=== PATIENT | female | born 1955 | race Caucasian/White ===

== ENCOUNTER 2017-07-03 15:45 | Inpatient (IN) | payer MEDICARE, MEDICAID ==
[~2017-07-03] VITALS: Ht 162.6 cm; Wt 90.7 kg
[2017-07-03] MEDS ORDERED: OLANZAPINE 10 MG VIAL IM ONE ×3 (16:15→19:45)
[2017-07-03] MEDS ORDERED: RISP3TAB5 PO (16:29)
[2017-07-03] MEDS ORDERED: CLOZ25TA4 PO (16:29)
[2017-07-03] MEDS ORDERED: DOCU-106 PO (16:29)
[2017-07-03] MEDS ORDERED: DIVA500T4 PO (16:29)
[2017-07-03] MEDS ORDERED: METO50TA16 PO (16:29)
[2017-07-03] MEDS ORDERED: ALBU8.5H8 IH (16:29)
[2017-07-03] MEDS ORDERED: ASPI-1152 PO (16:29)
--- NOTE | 2017-07-03 16:50 | NUR ---
MRSA NARES ORDERED AND SENT, ZY[facility] IM ADMINISTERESD. SVBAR REPORT TO NATI RN-MHU GIVEN. PT'S ADMIT ORDER WRITTEN.
--- NOTE | 2017-07-03 17:04 | NUR ---
[facility]
[2017-07-03] MEDS ORDERED: MAGNESIUM HYDROXIDE 30 ML LIQUID UDC PO PRN (17:45)
[2017-07-03] MEDS ORDERED: ACETAMINOPHEN 325 MG TABLET PO PRN (17:45)
[2017-07-03] MEDS ORDERED: ZOLPIDEM 5 MG TABLET PO PRN (17:45)
[2017-07-03] MEDS ORDERED: LORAZEPAM 1 MG TABLET PO PRN (17:45)
[2017-07-03] MEDS ORDERED: MAG HYDROX/AL HYDROX/SIMETH 30 ML LIQUID UDC PO PRN (17:45)
[2017-07-03] MEDS ORDERED: LORAZEPAM 2 MG/1 ML VIAL IM ONE (19:45)
--- NOTE | 2017-07-03 19:50 | NUR ---
At approx 1930, patient was observed yelling, screaming, demanding, belligerent, and cursing. she stated, "I want a fucking sandwich right now!!!, this is a horrible place!!!" she was also observed spilling juice in the floor intensionally. Patient was given multiple redirection; however, ineffective. Pt continue yelling, screaming, bothering other patients. She continue walking toward staff in a threatening posturing. Multiple redirection given, including offering time out, diversion, environmental modification; however, ineffective. PO PRN medication for anxiety/agitation was offered, but patient refused. Dr Ayala was called at approx 1936. At approx 1940, Dr Ayala called back and was notify of patient's behavior. New orders were obtained to administer Zyprexa 5mg IM and Ativan 1mg IM stat orders, one time only. Pharmacy was called to verify medication and once verify, IM medications were given at approx 1950 with patient's consent. Patient refused to have anyone to be notify. will continue to monitor.
[2017-07-03] MEDS ORDERED: ALBUTEROL SULFATE 8 GM HFA.AER.AD IH PRN (23:00)
[2017-07-03] MEDS ORDERED: CLONIDINE HCL 0.1 MG TABLET PO PRN (23:15)
--- NOTE | 2017-07-04 07:01 | NUR ---
PATIENT SLEPT FOR APPROX 6.30HRS THROUGH THE NIGHT. NO AGGRESSIVE/COMBATIVE BX NOTED. WILL CONTINUE TO MONITOR.
[2017-07-04] MEDS ORDERED: ALBUTEROL SULFATE 2.5 MG/3 ML NEBU NEB PRN (07:15)
[2017-07-04] MEDS ORDERED: METOPROLOL TARTRATE 50 MG TABLET PO SCH (09:00)
[2017-07-04] MEDS ORDERED: DIVALPROEX ER 500 MG TAB.SR.24H PO SCH (09:00)
[2017-07-04] MEDS: DOCUSATE SODIUM 100 MG CAPSULE PO SCH ×2 (09:00→09:12)
[2017-07-04] MEDS: ASPIRIN EC 81 MG TABLET.DR PO SCH ×2 (09:12→09:21)
[2017-07-04] MEDS ORDERED: HALOPERIDOL LACTATE 5 MG/1 ML VIAL IM PRN (09:15)
[2017-07-04] MEDS: DIVALPROEX ER 500 MG TAB.SR.24H PO SCH ×2 (09:15→17:00)
[2017-07-04] MEDS ORDERED: diphenhydrAMINE 50 MG/1 ML VIAL IM PRN (09:15)
[2017-07-04] MEDS: risperiDONE-M 0.5 MG TAB.RAPDIS PO SCH ×2 (09:15→17:00)
[2017-07-04] MEDS: HALOPERIDOL 2 MG TABLET PO SCH ×3 (13:00→21:20)
[2017-07-04] MEDS ORDERED: CLONIDINE HCL 0.1 MG TABLET PO PRN (17:00)
[2017-07-04] MEDS: BENZTROPINE MESYLATE 0.5 MG TABLET PO SCH (17:00)
[2017-07-04] MEDS: DOCOSANOL 2 GM CREAM TP SCH ×3 (17:00→21:31)
[2017-07-04] MEDS: CEFUROXIME AXETIL 250 MG TABLET PO SCH (17:08)
--- NOTE | 2017-07-04 20:30 | NUR ---
RECEIVED PATIENT IN HER ROOM, SHE IS NOTED A/O X 1, SHE IS ABLE TO WALK WITH STEADY GAIT AND ABLE TO MAKE HER NEEDS KNOW. SHE CONTINUE HYPERVERBAL, NEEDY, EASILY IRRITABLE, DEMANDING AND UNCOOPERATIVE. SHE REFUSED V/S, ASSESSMENT. POOR HISTORIAN, POOR INSIGHT AND JUDGMENT. SAFETY WAS EMPHASIS. WILL CONTINUE TO MONITOR CLOSELY.
[2017-07-04] MEDS: METOPROLOL TARTRATE 50 MG TABLET PO SCH (21:00)
--- NOTE | 2017-07-04 21:45 | NUR ---
PATIENT WAS ABLE TO PARTIALLY COMPLY WITH MEDICATION REGIMENT: HALDOL 2MG PO QHS AND ABREVA TOPICAL FOR LESION ON RIGHT SIDE OF LIPS WERE GIVEN. HOWEVER, PATIENT REFUSED V/S AND HTN MEDICATION. SHE ALSO REFUSED ATB PO TREATMENT. MULTIPLE REDIRECTION GIVEN. YET REFUSED. PT CONTINUE DELUSIONAL, SUSPICIOUS, SHE STATED, "YOU ALL TRYING TO POISON ME WITH YOUR PILLS." "I DO NOT NEED ANY MEDICATION". PATIENT CONTINUE EASILY IRRITABLE, YELLING AT TIME. SHE DENIES SI/HI. NO AGGRESSIVE/COMBATIVE BX NOTED AT THIS TIME. PT WAS ENCOURAGED TO VERBALIZED FEELINGS. WILL CONTINUE TO MONITOR/
[2017-07-05] MEDS: DOCOSANOL 2 GM CREAM TP SCH ×5 (06:30→20:36)
--- NOTE | 2017-07-05 07:03 | NUR ---
PATIENT SLEPT FOR APPROX 5.30 HRS THROUGH THE NIGHT. SHE WAS COMPLIANT WITH [facility] TOPICAL.
[2017-07-05 07:30] VITALS: BP 152/79
--- NOTE | 2017-07-05 08:00 | NUR ---
RECEIVED PATIENT IN BED, AFEBRILE, NOTED A/O X 2, ABLE TO VERBALIZE KNOWN NEEDS, NEEDY, EASILY IRRITABLE, DEMANDING AND UNCOOPERATIVE. REFUSE ASSESSMENT. POOR HISTORIAN, POOR INSIGHT AND JUDGMENT. SAFETY WAS EMPHASIS. WILL CONTINUE TO MONITOR CLOSELY.
[2017-07-05] MEDS: CEFUROXIME AXETIL 250 MG TABLET PO SCH ×2 (09:00→21:08)
[2017-07-05] MEDS: risperiDONE-M 0.5 MG TAB.RAPDIS PO SCH ×3 (09:00→17:38)
[2017-07-05] MEDS: DIVALPROEX ER 500 MG TAB.SR.24H PO SCH ×3 (09:00→17:38)
[2017-07-05] MEDS: BENZTROPINE MESYLATE 0.5 MG TABLET PO SCH ×3 (09:00→17:38)
[2017-07-05] MEDS: HALOPERIDOL 2 MG TABLET PO SCH ×5 (09:00→20:36)
[2017-07-05] MEDS: DOCUSATE SODIUM 100 MG CAPSULE PO SCH ×2 (09:00→09:32)
[2017-07-05] MEDS: METOPROLOL TARTRATE 50 MG TABLET PO SCH ×3 (09:00→21:00)
--- NOTE | 2017-07-05 09:00 | NUR ---
OFFERED MEDICATION, PATIENT AGREES TO TAKE IT, AFTER PREPARING THE MEDICATION SHE REFUSE TO TAKE IT AND SAID "JUST GIVE ME THE HALDOL IM, ITS TOO MUCH MEDICINE FOR ME" REGIMENT: HALDOL 2.5MG/IM/PRN GIVEN AND ABREVA TOPICAL FOR LESION ON RIGHT SIDE OF LIPS WERE GIVEN. HOWEVER, PATIENT REFUSED HTN MEDICATION. MULTIPLE REDIRECTION GIVEN. YET REFUSED. PT CONTINUE DELUSIONAL, SUSPICIOUS, SHE STATED, "I DO NOT NEED ANY MEDICATION". PATIENT CONTINUE EASILY IRRITABLE, YELLING AT TIME. SHE DENIES SI/HI. NO AGGRESSIVE/COMBATIVE BX NOTED AT THIS TIME. PT WAS ENCOURAGED TO VERBALIZED FEELINGS. WILL CONTINUE TO MONITOR
--- NOTE | 2017-07-05 13:03 | NUR ---
PATIENT TOOK SCHEDULED HALDOL 2MG/PO
--- NOTE | 2017-07-05 15:45 | NUR ---
Initial Discharge Plan: Pt address on face sheet is [address] [place] [address] however on 5150 report p[place] [address] [address]; (no other information reported). Pt reports living in a B&C currently ans when discharged she would like to live in a house. JON will follow up with her Conservator, Shweta Morocho for discharge planning purposes. SW will ensure pt is safely and appropriately discharged.
[2017-07-05 16:14] VITALS: BP 141/85
[2017-07-05 19:42] VITALS: BP 118/60
--- NOTE | 2017-07-05 21:00 | NUR ---
RECEIVED PATIENT IN THE DAY ROOM, SHE WAS NOTED A/O X 2, SHE IS ABLE TO AMBULATE WITH STEADY GAIT AND ABLE TO MAKE HER NEEDS KNOWN. SHE IS NOTED LESS IRRITABLE, LESS HYPERVERBAL LESS ARGUMENTATIVE. POOR INSIGHT AND JUDGMENT. BLUNTED AFFECT, LABILE MOOD. SHE WAS COMPLIANT WITH [facility] MEDICATION EXCEPT FOR METOPROLOL 50MG PO. SHE STATED, "I DON'T NEED IT BECAUSE MY BLOOD PRESSURE WAS 118, I AM GOOD." PT WAS ENCOURAGED TO VERBALIZED FEELINGS. SAFETY EMPHASIS. WILL CONTINUE TO MONITOR.
[2017-07-06] MEDS: DOCOSANOL 2 GM CREAM TP SCH ×5 (06:58→20:39)
--- NOTE | 2017-07-06 07:27 | NUR ---
pt refused blood drawn this am
[2017-07-06 08:00] VITALS: BP 143/79
[2017-07-06] MEDS: risperiDONE-M 0.5 MG TAB.RAPDIS PO SCH ×2 (08:06→16:46)
[2017-07-06] MEDS: ASPIRIN EC 81 MG TABLET.DR PO SCH (08:06)
[2017-07-06] MEDS: BENZTROPINE MESYLATE 0.5 MG TABLET PO SCH ×2 (08:06→16:46)
[2017-07-06] MEDS: DOCUSATE SODIUM 100 MG CAPSULE PO SCH (08:06)
[2017-07-06] MEDS: METOPROLOL TARTRATE 50 MG TABLET PO SCH ×2 (08:07→20:16)
[2017-07-06] MEDS: HALOPERIDOL 2 MG TABLET PO SCH (08:07)
[2017-07-06] MEDS: DIVALPROEX ER 500 MG TAB.SR.24H PO SCH ×2 (08:07→16:46)
[2017-07-06] MEDS: CEFUROXIME AXETIL 250 MG TABLET PO SCH ×2 (08:08→20:16)
[2017-07-06] MEDS: HALOPERIDOL 5 MG TABLET PO SCH ×3 (09:00→16:46)
--- NOTE | 2017-07-06 09:45 | NUR ---
Pt seen and examined by Dr Ayala with new order to increase Haldol 5mg TID. Non-admin 9am dose due to already administered 9am dose from previous BID order.
--- NOTE | 2017-07-06 11:02 | NUR ---
Firearms Report: Criminal Investigator completed and submitted [employer] Firearms Report on 07/06/17.
[2017-07-06 15:56] VITALS: BP 123/73
[2017-07-06] MEDS: GUAIFENESIN LA 600 MG TABLET.SA PO SCH (20:15)
[2017-07-07] MEDS: DOCOSANOL 2 GM CREAM TP SCH ×5 (06:01→20:31)
--- NOTE | 2017-07-07 06:53 | NUR ---
GPS: REMAIN CALM NAD COOPERATIVE WITH MEDICATIONS AND CARE. SLEPT 7 HRS THROUGH THE NIGHT. NO AGITATION NOTED AT THIS TIME. CONTINUE PLAN OF CARE.
[2017-07-07 07:30] VITALS: BP 115/58
[2017-07-07] MEDS: risperiDONE-M 0.5 MG TAB.RAPDIS PO SCH ×2 (08:13→16:09)
[2017-07-07] MEDS: DOCUSATE SODIUM 100 MG CAPSULE PO SCH (08:13)
[2017-07-07] MEDS: ASPIRIN EC 81 MG TABLET.DR PO SCH (08:13)
[2017-07-07] MEDS: DIVALPROEX ER 500 MG TAB.SR.24H PO SCH ×2 (08:13→16:08)
[2017-07-07] MEDS: BENZTROPINE MESYLATE 0.5 MG TABLET PO SCH ×2 (08:13→16:08)
[2017-07-07] MEDS: METOPROLOL TARTRATE 50 MG TABLET PO SCH ×2 (08:13→20:31)
[2017-07-07] MEDS: CEFUROXIME AXETIL 250 MG TABLET PO SCH ×2 (08:13→20:32)
[2017-07-07] MEDS: HALOPERIDOL 5 MG TABLET PO SCH ×3 (08:13→16:08)
[2017-07-07] MEDS: GUAIFENESIN LA 600 MG TABLET.SA PO SCH ×2 (08:14→20:30)
--- NOTE | 2017-07-07 08:15 | NUR ---
PT REFUSED MORNING LAB WORK CHARGE NURSE AND MADE AWARE
[2017-07-07 15:42] VITALS: BP 134/67
[2017-07-07 20:00] VITALS: BP 135/58
[2017-07-08] MEDS: DOCOSANOL 2 GM CREAM TP SCH ×5 (06:00→20:55)
--- NOTE | 2017-07-08 06:35 | NUR ---
GPS: REMAIN CALM AND COOPERATIVE WITH CARE. SLEPT 8:30 HRS THROUGH THE NIGHT.NO AGITATION NOTED.
--- NOTE | 2017-07-08 06:37 | NUR ---
GPS: REFUSED ABREVA CREAM FOR LIPS THIS MORNING.
[2017-07-08 08:29] VITALS: BP 145/75
[2017-07-08] MEDS: CEFUROXIME AXETIL 250 MG TABLET PO SCH ×2 (09:10→20:54)
[2017-07-08] MEDS: DIVALPROEX ER 500 MG TAB.SR.24H PO SCH ×2 (09:11→18:52)
[2017-07-08] MEDS: ASPIRIN EC 81 MG TABLET.DR PO SCH (09:11)
[2017-07-08] MEDS: DOCUSATE SODIUM 100 MG CAPSULE PO SCH (09:12)
[2017-07-08] MEDS: GUAIFENESIN LA 600 MG TABLET.SA PO SCH ×2 (09:12→20:54)
[2017-07-08] MEDS: risperiDONE-M 0.5 MG TAB.RAPDIS PO SCH ×2 (09:13→18:53)
[2017-07-08] MEDS: HALOPERIDOL 5 MG TABLET PO SCH ×3 (09:13→18:52)
[2017-07-08] MEDS: BENZTROPINE MESYLATE 0.5 MG TABLET PO SCH ×2 (09:13→18:52)
[2017-07-08] MEDS: METOPROLOL TARTRATE 50 MG TABLET PO SCH ×2 (09:14→20:54)
--- NOTE | 2017-07-08 11:55 | NUR ---
RECEIVED Pt IN BED SLEEPING BUT EASILY AROUSED, A/O X 3, COOPERATIVE, COMPLIANT WITH MEDS AND CARE STAFF. NOTED DEPRESSION AND AGITATION WITH CERTAIN THINGS, LABILE, CLEAR BUT TANGENTIAL SPEECH WHEN Pt BECOMES AGITATED, DENIES SI.
[2017-07-08] MEDS: ECONAZOLE TP SCH (12:35)
[2017-07-08 12:58] LABS: BILIRUBIN,TOTAL 0.6 mg/dL (0.2-1.0); CREATININE 0.6 mg/dL (0.6-1.3); PHOSPHOROUS 3.2 mg/dL (2.5-4.9); POTASSIUM 4.4 mmol/L (3.5-5.1); TOTAL PROTEIN, SERUM 6.5 g/dL (6.4-8.2)
[2017-07-08 13:00] LABS: BASOPHILS % (AUTO) 0.1 % (0.0-2.0); HEMATOCRIT 43.1 % (31.2-41.9); HEMOGLOBIN 14.5 g/dL (10.9-14.3); LYMPHOCYTES # (AUTO) 2.1 K/uL (20.0-40.0); LYMPHOCYTES % (AUTO) 37.3 % (20.5-51.5); MEAN CORPUSCULAR HEMOGLOBIN 29.3 uug (24.7-32.8); MEAN CORPUSCULAR HGB CONC 34 g/dL (32.3-35.6); MEAN CORPUSCULAR VOLUME 86.7 fL (75.5-95.3); MONOCYTES # (AUTO) 0.4 K/uL (2.0-10.0); MONOCYTES % (AUTO) 6.8 % (0.0-11.0); NEUTROPHILS # (AUTO) 3.2 K/uL (1.8-8.9); NEUTROPHILS % (AUTO) 55.8 % (38.5-71.5); PLATELET COUNT (AUTO) 233 K/uL (179-408); RED BLOOD CELL COUNT(AUTO) 4.96 MIL/uL (3.63-4.92); WHITE BLOOD COUNT (AUTO) 5.7 K/uL (3.8-11.8)
[2017-07-08 13:20] LABS: THYROID STIMULATING HORMONE 1.848 mIU/mL (0.358-3.740)
[2017-07-08 16:41] VITALS: BP 145/79
[2017-07-08 20:00] VITALS: BP 139/60
--- NOTE | 2017-07-09 00:45 | NUR ---
Pt AWOKE AND WENT TO THE BATHROOM IN HER ROOM, AND BECAME EXTREMELY ANGRY AND AGITATED BECAUSE THE BATHROOM SMELLED LIKE SMOKE D/T HER ROOMMATE BEING CAUGHT SMOKING A CIGARETTE IN THE BATHROOM EARLIER. Pt YELLED AND SCREAMED RACIAL SLURS AND THREATS TO HER ROOMMATE, AND BEGAN POSTURING. FOR SAFETY, THIS Pt WAS REDIRECTED AND TEMPORARILY MOVED TO ROOM 142 WITH THE DOOR OPEN.
[2017-07-09] MEDS: DOCOSANOL 2 GM CREAM TP SCH ×5 (06:00→20:22)
[2017-07-09 07:30] VITALS: BP 149/99
--- NOTE | 2017-07-09 09:00 | NUR ---
Patient pacing in and out of her room and in the dayroom watching tv, guarded, no interaction with peers and staff, less irritable today, keeps to self, spent time watching tv when in the dayroom, ate 100% breakfast. Denies SI/HI/AH, no aggressive behavior noted. Medication compliant and cooperative,no c/o pain noted. Will continue to monitor for safety, needs and behavioral changes.
[2017-07-09] MEDS: DOCUSATE SODIUM 100 MG CAPSULE PO SCH (09:26)
[2017-07-09] MEDS: BENZTROPINE MESYLATE 0.5 MG TABLET PO SCH ×2 (09:26→16:41)
[2017-07-09] MEDS: HALOPERIDOL 5 MG TABLET PO SCH ×3 (09:26→16:41)
[2017-07-09] MEDS: ASPIRIN EC 81 MG TABLET.DR PO SCH (09:26)
[2017-07-09] MEDS: GUAIFENESIN LA 600 MG TABLET.SA PO SCH ×2 (09:27→20:23)
[2017-07-09] MEDS: METOPROLOL TARTRATE 50 MG TABLET PO SCH ×2 (09:27→20:24)
[2017-07-09] MEDS: risperiDONE-M 0.5 MG TAB.RAPDIS PO SCH ×2 (09:28→16:42)
[2017-07-09] MEDS: CEFUROXIME AXETIL 250 MG TABLET PO SCH ×2 (09:39→20:23)
[2017-07-09] MEDS: DIVALPROEX ER 500 MG TAB.SR.24H PO SCH ×3 (09:41→16:42)
[2017-07-09] MEDS: ECONAZOLE TP SCH (09:41)
[2017-07-09 15:50] VITALS: BP 136/92
--- NOTE | 2017-07-09 18:34 | NUR ---
Visible in dayroom in pm watching tv with peers, pleasant on approach, ate 100% snacks and dinner, medication compliant and cooperative, no aggressive behavior noted during the shift. Will continue to monitor.
[2017-07-09 20:46] VITALS: BP 125/52
[2017-07-10] MEDS: DOCOSANOL 2 GM CREAM TP SCH ×5 (06:00→21:49)
[2017-07-10 07:30] VITALS: BP 159/83
[2017-07-10] MEDS: risperiDONE-M 0.5 MG TAB.RAPDIS PO SCH ×2 (08:55→16:58)
[2017-07-10] MEDS: DIVALPROEX ER 500 MG TAB.SR.24H PO SCH ×3 (08:57→16:58)
[2017-07-10] MEDS: HALOPERIDOL 5 MG TABLET PO SCH ×3 (08:57→16:58)
[2017-07-10] MEDS: ASPIRIN EC 81 MG TABLET.DR PO SCH (08:57)
[2017-07-10] MEDS: METOPROLOL TARTRATE 50 MG TABLET PO SCH ×2 (08:57→21:49)
[2017-07-10] MEDS: DOCUSATE SODIUM 100 MG CAPSULE PO SCH (08:57)
[2017-07-10] MEDS: BENZTROPINE MESYLATE 0.5 MG TABLET PO SCH ×2 (08:57→16:58)
[2017-07-10] MEDS: CEFUROXIME AXETIL 250 MG TABLET PO SCH ×2 (08:59→21:48)
[2017-07-10] MEDS ORDERED: HALOPERIDOL DECANOATE 50 MG/1 ML AMPUL IM ONE (09:00)
[2017-07-10] MEDS: GUAIFENESIN LA 600 MG TABLET.SA PO SCH ×2 (10:51→21:48)
[2017-07-10] MEDS: ECONAZOLE TP SCH (11:03)
[2017-07-10 15:25] VITALS: BP 129/75
[2017-07-10 19:41] VITALS: BP 123/62
[2017-07-11] MEDS: DOCOSANOL 2 GM CREAM TP SCH ×5 (05:12→20:29)
--- NOTE | 2017-07-11 06:26 | NUR ---
Patient slept 9 hours. No behavioral issues noted. Cooperative. Med compliant. Vital signs stable. Bed was kept in low and locked position. Safety and comfort measures maintained t/o shift.
[2017-07-11 07:30] VITALS: BP 143/80
[2017-07-11] MEDS: METOPROLOL TARTRATE 50 MG TABLET PO SCH ×2 (08:25→20:29)
[2017-07-11] MEDS: DOCUSATE SODIUM 100 MG CAPSULE PO SCH (08:25)
[2017-07-11] MEDS: risperiDONE-M 0.5 MG TAB.RAPDIS PO SCH ×2 (08:25→16:48)
[2017-07-11] MEDS: HALOPERIDOL 5 MG TABLET PO SCH ×3 (08:26→16:48)
[2017-07-11] MEDS: ASPIRIN EC 81 MG TABLET.DR PO SCH (08:26)
[2017-07-11] MEDS: CEFUROXIME AXETIL 250 MG TABLET PO SCH (08:26)
[2017-07-11] MEDS: GUAIFENESIN LA 600 MG TABLET.SA PO SCH ×2 (08:26→20:28)
[2017-07-11] MEDS: DIVALPROEX ER 500 MG TAB.SR.24H PO SCH ×3 (08:26→16:48)
[2017-07-11] MEDS: ECONAZOLE TP SCH (08:27)
[2017-07-11] MEDS: BENZTROPINE MESYLATE 0.5 MG TABLET PO SCH ×2 (08:29→16:49)
[2017-07-11 14:40] VITALS: BP 148/82
[2017-07-11 21:40] VITALS: BP 120/66
[2017-07-12] MEDS: DOCOSANOL 2 GM CREAM TP SCH ×5 (06:00→20:13)
[2017-07-12 07:30] VITALS: BP 170/98
[2017-07-12 08:02] VITALS: BP 170/98
[2017-07-12] MEDS: risperiDONE-M 0.5 MG TAB.RAPDIS PO SCH ×2 (08:39→16:33)
[2017-07-12] MEDS: METOPROLOL TARTRATE 50 MG TABLET PO SCH ×2 (08:39→20:11)
[2017-07-12] MEDS: DOCUSATE SODIUM 100 MG CAPSULE PO SCH (08:40)
[2017-07-12] MEDS: DIVALPROEX ER 500 MG TAB.SR.24H PO SCH ×3 (08:40→16:34)
[2017-07-12] MEDS: HALOPERIDOL 5 MG TABLET PO SCH ×3 (08:40→16:33)
[2017-07-12] MEDS: BENZTROPINE MESYLATE 0.5 MG TABLET PO SCH ×2 (08:40→16:33)
[2017-07-12] MEDS: GUAIFENESIN LA 600 MG TABLET.SA PO SCH ×2 (08:40→20:11)
[2017-07-12] MEDS: ASPIRIN EC 81 MG TABLET.DR PO SCH (08:40)
[2017-07-12] MEDS: ECONAZOLE TP SCH (08:41)
[2017-07-12 17:06] VITALS: BP 128/64
[2017-07-12 20:09] VITALS: BP 132/60
[2017-07-13] MEDS: DOCOSANOL 2 GM CREAM TP SCH ×5 (06:25→22:42)
--- NOTE | 2017-07-13 06:51 | NUR ---
GPS: REMAIN CALM AND COOPERATIVE. SLEPT 9:30 HRS THROUGH THE NIGHT. AMBULATE WITH STEADY GAIT.NO BEHAVIOR PROBLEM NOTED. CONTINUE MONITORING FOR SAFETY.
[2017-07-13 07:30] VITALS: BP 142/69
--- NOTE | 2017-07-13 07:45 | NUR ---
GPS: Rec'd pt in bed, awake. No acute distress noted. No behavioral manifestation noted at this time. Per report, pt continues to be cooperative with plan of care. Denies pain. Will continue to monitor for change.
[2017-07-13] MEDS: BENZTROPINE MESYLATE 0.5 MG TABLET PO SCH ×2 (08:26→16:38)
[2017-07-13] MEDS: DIVALPROEX ER 500 MG TAB.SR.24H PO SCH ×3 (08:26→16:38)
[2017-07-13] MEDS: DOCUSATE SODIUM 100 MG CAPSULE PO SCH (08:26)
[2017-07-13] MEDS: ASPIRIN EC 81 MG TABLET.DR PO SCH (08:27)
[2017-07-13] MEDS: HALOPERIDOL 5 MG TABLET PO SCH ×3 (08:27→16:38)
[2017-07-13] MEDS: GUAIFENESIN LA 600 MG TABLET.SA PO SCH ×2 (08:28→22:41)
[2017-07-13] MEDS: risperiDONE-M 0.5 MG TAB.RAPDIS PO SCH ×2 (08:28→16:38)
[2017-07-13] MEDS: METOPROLOL TARTRATE 50 MG TABLET PO SCH ×2 (08:57→22:42)
[2017-07-13] MEDS: ECONAZOLE TP SCH (10:15)
[2017-07-13 16:24] VITALS: BP 127/60
--- NOTE | 2017-07-13 18:30 | NUR ---
GPS: Pt remained calm during shift. Took all due meds and was cooperative with plan of care. Tolerated all meals. Ambulating ad konstantin in unit. BRP. Denies pain. Attended activities of choice. No behavioral manifestations noted. Will continue to monitor.
[2017-07-13 20:00] VITALS: BP 133/63
[2017-07-14 07:30] VITALS: BP 162/71
[2017-07-14] MEDS: GUAIFENESIN LA 600 MG TABLET.SA PO SCH ×2 (08:20→20:58)
[2017-07-14] MEDS: BENZTROPINE MESYLATE 0.5 MG TABLET PO SCH ×2 (08:20→18:16)
[2017-07-14] MEDS: risperiDONE-M 0.5 MG TAB.RAPDIS PO SCH ×2 (08:20→18:16)
[2017-07-14] MEDS: DIVALPROEX ER 500 MG TAB.SR.24H PO SCH ×3 (08:20→18:16)
[2017-07-14] MEDS: ASPIRIN EC 81 MG TABLET.DR PO SCH (08:20)
[2017-07-14] MEDS: DOCUSATE SODIUM 100 MG CAPSULE PO SCH (08:20)
[2017-07-14] MEDS: HALOPERIDOL 5 MG TABLET PO SCH ×3 (08:20→18:16)
[2017-07-14] MEDS: METOPROLOL TARTRATE 50 MG TABLET PO SCH ×2 (08:23→20:58)
[2017-07-14] MEDS: ECONAZOLE TP SCH (08:23)
[2017-07-14] MEDS: DOCOSANOL 2 GM CREAM TP SCH (10:50)
[2017-07-14 15:51] VITALS: BP 118/71
[2017-07-14 20:29] VITALS: BP 116/76
[2017-07-15 07:30] VITALS: BP 136/83
[2017-07-15] MEDS: risperiDONE-M 0.5 MG TAB.RAPDIS PO SCH ×2 (08:30→17:19)
[2017-07-15] MEDS: HALOPERIDOL 5 MG TABLET PO SCH ×3 (08:31→17:19)
[2017-07-15] MEDS: GUAIFENESIN LA 600 MG TABLET.SA PO SCH ×2 (08:31→21:14)
[2017-07-15] MEDS: ASPIRIN EC 81 MG TABLET.DR PO SCH (08:31)
[2017-07-15] MEDS: METOPROLOL TARTRATE 50 MG TABLET PO SCH ×2 (08:31→21:14)
[2017-07-15] MEDS: BENZTROPINE MESYLATE 0.5 MG TABLET PO SCH ×2 (08:31→17:19)
[2017-07-15] MEDS: DOCUSATE SODIUM 100 MG CAPSULE PO SCH (08:31)
[2017-07-15] MEDS: DIVALPROEX ER 500 MG TAB.SR.24H PO SCH ×3 (08:31→17:19)
[2017-07-15] MEDS: ECONAZOLE TP SCH (08:33)
[2017-07-15 15:55] VITALS: BP 129/83
[2017-07-15 20:00] VITALS: BP 133/61
[2017-07-16 07:30] VITALS: BP 136/94
[2017-07-16] MEDS: DIVALPROEX ER 500 MG TAB.SR.24H PO SCH (08:16)
[2017-07-16] MEDS: risperiDONE-M 0.5 MG TAB.RAPDIS PO SCH (08:16)
[2017-07-16 08:17] VITALS: BP 115/79
[2017-07-16] MEDS: METOPROLOL TARTRATE 50 MG TABLET PO SCH (08:17)
[2017-07-16] MEDS: BENZTROPINE MESYLATE 0.5 MG TABLET PO SCH (08:17)
[2017-07-16] MEDS: ASPIRIN EC 81 MG TABLET.DR PO SCH (08:17)
[2017-07-16] MEDS: GUAIFENESIN LA 600 MG TABLET.SA PO SCH (08:17)
[2017-07-16] MEDS: HALOPERIDOL 5 MG TABLET PO SCH (08:17)
[2017-07-16] MEDS: DOCUSATE SODIUM 100 MG CAPSULE PO SCH (08:18)
[2017-07-16] MEDS: ECONAZOLE TP SCH (08:18)
--- NOTE | 2017-07-16 08:46 | NUR ---
Discharge Note: Patient will be discharged to [facility] [[address] [place] [address]; [phone]] via ambulance. Spoke with CJ at the facility who states they are ready to accept the patient today. Spoke with patient's sister/LPS conservator Shweta ([phone]) who is aware and agreeable with discharge plans. Patient is aware and agreeable with discharge plans. Patient will follow-up at the facility with Dr. Kidd (Credit Clerk) and Dr. Morgan (Psychiatrist). For smoking cessation, patient was referred to [employer] 800-LUNGUSA and [employer] [phone].
[2017-07-16] MEDS ORDERED: LIDOCAINE 5% PATCH TD SCH (09:00)
--- NOTE | 2017-07-16 12:21 | NUR ---
PT TO DISCHARGE TO [facility] VIA AMBULANCE. PT D/C WITH ALL BELONGINGS, VALUABLES, AND EXIT CARE PACKET. PT DENIES SI, HI, DELUSIONS, AND AUDITORY HALLUCINATIONS AT THIS TIME. PT IS STABLE FOR D/C, REFUSING VACCINES, CALM, COOPERATIVE, MEDICATION COMPLIANT. PICTURES TAKEN UPON D/C AND PLACE INTO CHART.REPORT CALLED IN TO NURSE PORTILLO.
== END 2017-07-16 12:21 | DRG 885 ==
LOC: ER 15:49 → GPS 16:25
PROVIDERS: ADMIT Psychiatry & Neurology Psychiatry; ATTEND Internal Medicine
PROC: 0HBRXZZ Excision of Toe Nail, External Approach (ICD-10-PCS; principal; 2017-07-04)
DX: F20.0 Paranoid schizophrenia (principal); G40.909 Epilepsy, unspecified, not intractable, without status epilepticus; B00.1 Herpesviral vesicular dermatitis; B35.1 Tinea unguium; B35.3 Tinea pedis; F17.200 Nicotine dependence, unspecified, uncomplicated; E66.9 Obesity, unspecified; L60.8 Other nail disorders; Z91.19 Patient's noncompliance with other medical treatment and regimen; R26.2 Difficulty in walking, not elsewhere classified; L85.1 Acquired keratosis [keratoderma] palmaris et plantaris; Z79.82 Long term (current) use of aspirin; Z79.899 Other long term (current) drug therapy; Z68.33 Body mass index [BMI] 33.0-33.9, adult; Z71.3 Dietary counseling and surveillance; J20.9 Acute bronchitis, unspecified; J45.909 Unspecified asthma, uncomplicated; I10 Essential (primary) hypertension; G89.29 Other chronic pain; M25.569 Pain in unspecified knee
CPT/HCPCS: 36415; 71045; 80164; 83735; 84100; 84443; 85025; A4663; J1200; J1630; J1631; J2060; J2358; J3535